=== PATIENT | male | born 1950 | race Caucasian/White ===

== ENCOUNTER → 2020-08-17 13:44 | Outpatient (CLI) | payer MEDICARE ==
--- NOTE | 2020-08-21 16:00 | EC ---
PATIENT:PRANAY GILLILAND DATE OF SERVICE: 08/17/20 SEX: M MEDICAL RECORD: [id number] DATE OF : 46 LOCATION:D[facility] AGE OF PATIENT: 70 ADMISSION DATE: 08/17/20 REFERRING PHYSICIAN: INTERPRETING PHYSICIAN: STEVEN PINEDO MD ECHOCARDIOGRAM REPORT ECHO CHARGES 4 ECHO COMPLETE Date: 08/17/20 CLINICAL DIAGNOSIS: HX OF OF HEALTH, ASSESS EF AND VALVES ECHOCARDIOGRAPHIC MEASUREMENTS (adult normal given) AC root (d.<3.7cm) 3.8 cm LV Septum d (<1.2 cm> 1.5 cm Valve Excursion 1.8 cm LV Septum (systole) 1.7 cm Left Atria (s.<4.0cm> 3.9 cm LVPW d(<1.2cm) 1.4 cm RV (d.<2.3cm) 3.4 cm LVPW (sytole) 1.6 cm LV diastole(<5.6CM) 6.1 cm MV E-F(>70mm/sec) cm LV systole 4.7 cm LVOT Diameter 2.7 cm MV exc.(>10mm) 1.6 cm Est.ejection fraction (50-75%) % DOPPLER: LVIT cm/sec A cm/sec E 84.0 cm/sec LA cm/sec RVSP 32 mmHg LVOT 80 cm/sec AOP1/2T m/s Asc. Ao 91 cm/sec RVOT cm/sec RA cm/sec PA 71 cm/sec AV Gradient Peak 3.29 mmHg AV Mean 1.57 mmHg AV Area 5.2 cm MV Gradient Peak 4.52 mmHg MV Mean 1.11 mmHg MV Area cm COMMENTS: Engine Assembly Supervisor: 2 KOBE PAGE Fraud Representative: 3 Dr. Castano TAPE# PACS Pericardial Effusion N DATE OF SERVICE: Adequate 2D, color-flow imaging, spectral Doppler, and M-Mode FINDINGS: LVH is present. LV internal dimension is dilated. LV is globally hypokinetic with reduced EF, estimated EF 30% to 35%. Aortic valve is sclerosed without evidence of stenosis by Doppler interrogation. Left atrium is normal at 3.9 cm. Mitral valve shows no prolapse. Mild MR. Right side is grossly normal. Mild TR. ECHOCARDIOGRAM REPORT [id number] PRANAY GILLILAND TRANSINT:[id number] Voice Confirmation ID: [id number] DOCUMENT ID: [id number] STEVEN PINEDO MD at 1600 CC: [id number] DICTATION DATE: 08/18/20828 CLINICAL LAB SPECIALIST: 08/18/20912 DEP CLI 08/17/20 [place] [id number] [place] [id number]
== END | disposition home or self-care (01) ==
LOC: D.HCCECHO 08-16 14:30
PROVIDERS: ATTEND Internal Medicine Interventional Cardiology
DX: I10 Essential (primary) hypertension (principal)